=== PATIENT | female | born 1995 | race Caucasian/White ===

== ENCOUNTER → 2020-09-10 12:29 | Outpatient (BNVA) | payer BC, SELFPAY | PROVIDERS: Family Provider Family Medicine; PCP Nurse Practitioner Family; Referring Provider Nurse Practitioner Family; Visit Provider Nurse Practitioner Family | DX: N39.0 Urinary tract infection, site not specified (principal) | CPT/HCPCS: 80053; 81003 ==

== ENCOUNTER → 2020-10-22 08:26 | Outpatient (BNVA) | payer BC, SELFPAY | PROVIDERS: Family Provider Family Medicine; PCP Nurse Practitioner Family; Visit Provider Urology | DX: N39.0 Urinary tract infection, site not specified (principal) | CPT/HCPCS: 81003 ==

== ENCOUNTER → 2021-03-10 14:00 | Outpatient (BNVA) | payer OTHER, SELFPAY | PROVIDERS: Family Provider Family Medicine; PCP Nurse Practitioner Family; Visit Provider Obstetrics & Gynecology | DX: Z12.4 Encounter for screening for malignant neoplasm of cervix (principal); O24.919 Unspecified diabetes mellitus in pregnancy, unspecified trimester; N92.6 Irregular menstruation, unspecified; Z11.3 Encounter for screening for infections with a predominantly sexual mode of transmission | CPT/HCPCS: 83036; 83525; 84443; 88175 ==

== ENCOUNTER → 2021-03-25 09:12 | Outpatient (BNVA) | payer OTHER, SELFPAY | PROVIDERS: Family Provider Family Medicine; PCP Nurse Practitioner Family; Visit Provider Obstetrics & Gynecology | DX: N88.8 Other specified noninflammatory disorders of cervix uteri (principal); R10.2 Pelvic and perineal pain | CPT/HCPCS: 76830 ==

== ENCOUNTER 2021-08-01 14:00 | Emergency (ER) | payer OTHER, SELFPAY ==
[2021-08-01] VITALS (7 sets, daily range): BP systolic 126–144; BP diastolic 83–99; PULSE 84–90; RESP 16–22; TEMP 36.7; O2SAT 97–100; BMI 27.4
--- NOTE | 2021-08-01 14:20 | ED_ITS ---
HPI - Head Injury General: Chief complaint: Head Injury Stated complaint: FELL:HIT HEAD ON DESK,THEN ON FLOOR/LOC Time Seen by Provider: 08/01/21 14:20 Source: patient Mode of arrival: ambulatory Limitations: no limitations History of Present Illness: HPI Narrative: 25-year-old female presents to the ER today for headache, dizziness, nausea, and fatigue after falling yesterday at work and hitting her head on the desk and then the floor. Patient reports this happened after she tripped. She reports she did lose consciousness for about 10 seconds before coming to. When she came to she had tenderness of the scalp and a headache but denied any dizziness at that time. She reports throughout the day yesterday she did have dizziness off and on in addition to a headache and nausea. She never did vomit. Patient denies any vision issues including blurry vision or double vision. Patient denies any prior head injuries. She has not take anything for her symptoms at this time. Patient reports the dizziness and headaches worsened today after going to work and working on the computer for an extended period of time. Patient denies ear pain, congestion, runny nose, sore throat, chest pain, shortness of breath, vomiting, diarrhea, constipation, change in bowel or bladder habits. MD Complaint: head injury Onset (ago): day(s) (1) Mechanism of Injury: fall Place: work Loss of Consciousness: yes Location of injury: temporal Severity: moderate Severity scale (1-10): 4 Quality: dull and aching Radiation: none Other Injuries: none Associated symptoms: Reports nausea; Deny amnesia, confusion, neck pain, numbness, syncope, visual changes or vomiting Review of Systems Const: Denies: fever(s), chills or body aches Eyes: Denies: change in vision or blurry vision ENMT: Denies: throat pain, nasal discharge or nasal congestion Card: Denies: chest pain, palpitations or syncope Resp: Denies: dyspnea, productive cough or wheezing GI: Reports: nausea; Denies: abdominal pain, vomiting, diarrhea or constipation Musc: Denies: neck pain or back pain Skin/Breast: Denies: rash Neuro: Reports: headache(s) and dizziness; Denies: numbness in extremities, weakness in extremities, confusion or Slurred speech present [facility] ED PFSH: Medical History Recurrent UTI Family History Mother Hypothyroidism Hyperthyroidism Uterine cancer onset age of 27 Ovarian cyst Father CAD (coronary artery disease) Sarcoidosis Clotting disorder Factor 5 Grandmother Breast cancer maternal Denies family history of Diabetes Hyperlipidemia Chronic kidney disease (CKD) Anesthesia complication Bleeding disorder Hypertension Stroke Social History Smoking and tobacco status: never smoked Alcohol intake: never Marital status: Life Partner Current occupational status: employed History of recent travel: No Physical Exam Const: COMMON NORMALS: no acute distress, average body habitus, patient oriented x3 and healthy appearing EXAM LIMITATIONS: no altered mental status GENERAL APPEARANCE: cooperative and comfortable; not in distress HENMT: COMMON NORMALS: normocephalic, external ears normal and Normal nasal mucous membranes and turbinates present HEAD & SCALP: normocephalic, contusion (R tenriism and just posterior to R ear) and scalp tenderness; no laceration, no occipital foramen tenderness, no palpable skull fracture and no raccoon eyes FACE & SINUS: normal facial exam NOSE: Normal nasal mucous membranes and turbinates present EXTERNAL EAR: Yes external ears normal THROAT: posterior oropharynx normal Eye: COMMON NORMALS: Equal, round and reactive pupils present, EOMs intact bilaterally, conjunctivae normal and normal visual amin by confrontation GENERAL EYE: appearance normal, both eyes and all related structures and normal light reflex VISUAL ACUITY: Yes acuity normal CONJUNCTIVA: Yes conjunctivae normal PUPIL: Yes Equal, round and reactive pupils present DIRECT OPHTHALMOSCOPY: Yes normal light reflex Neck/C-Spine: COMMON NORMALS: full ROM and no lymphadenopathy Resp: COMMON NORMALS: normal respiratory effort, No retractions and clear to auscultation bilaterally EFFORT & INSPECTION: Yes able to speak in complete sentences AUSCULTATION: clear to auscultation bilaterally, no rales, no rhonchi and no wheezes Cardio: COMMON NORMALS: regular rate, regular rhythm and No murmurs present (Cardio) RATE: regular rate RHYTHM: regular rhythm GI: COMMON NORMALS: Normal to inspection, nondistended, normoactive bowel sounds present, Soft to palpation and non-tender PALPATION: Yes Soft to palpation Extremity: COMMON NORMALS: normal to inspection and full ROM Neuro: COMMON NORMALS: patient oriented x3, CN's II-XII intact bilaterally, moves all extremities, no focal motor deficits and gait normal COORDINATION/BALANCE: [id number]-[id number] test normal, [id number]-[id number] test normal, tandem gait normal, No sways with eyes open, does not sway with eyes open and Romberg test negative SPEECH: speech normal GAIT: Yes Normal gait present MOTOR EXAM: 5/5 motor strength present throughout COORDINATION: edeyry-sn-[id number] test normal, zgva-cu-[id number] test normal, tandem gait normal and does not sway with eyes open Psych: COMMON NORMALS: mental status grossly normal, Normal thought process present, cooperative and speech normal SPEECH: Yes normal speech THOUGHT PROCESS: Normal thought process present Skin: COMMON NORMALS: no rashes or lesions noted GENERAL SKIN EXAM: no rashes or lesions noted Course ED course: Patient fell yesterday, hitting head on the desk and floor and losing consciousness for about 10 seconds. Patient is still experiencing some mild dizziness and nausea in addition to headache. Physical exam in the ER is normal. Neuro exam is normal. Based on this I feel it would be unnecessary to perform a CT at this time. Patient has no neuro deficits. Vital Signs: Vital signs: Vital Signs Temperature 98.1 F 08/01/21 14:12 Pulse Rate 84 08/01/21 14:12 Respiratory Rate 17 08/01/21 14:12 Blood Pressure 126/83 08/01/21 14:12 Pulse Oximetry 99 08/01/21 14:12 MDM - Head Injury MDM Narrative: Medical decision making narrative: Patient presented to the ER after falling and hitting head on desk and floor yesterday and losing consciousness for about 10 seconds. Patient has had classic concussion symptoms since including dizziness, headache, and nausea. Exam in the ER is unremarkable other than superficial bruising in small hematoma to the right side of the scalp. Neuro exam is completely normal. Discussed treatment options with patient including whether to CT or not. Patient is in agreement that we will hold on CT at this time given the normal exam. We did discuss close return precautions. Patient should take ibuprofen or Tylenol for pain. Rest is recommended including most importantly brain rest. We discussed that symptoms can last anywhere from 2 days to months. Patient should follow up with her PCP in 1 week. Return to the ER with new or worsening symptoms. Patient verbalized understanding and was in agreement with this treatment plan Critical Care Time Critical Care Time: Critical Care Time: No Discharge Plan Discharge Condition: Stable Prescriptions: No Action amitriptyline 25 mg tablet 25 mg PO .h.s. RF: 0 escitalopram oxalate 20 mg tablet 20 mg PO DAILY RF: 0 metformin [Glucophage] 500 mg tablet 500 mg PO BID Qty: 60 RF: 6 Discharge Orders: Discharge ED (Routine); Ordered 08/01/21 Ordered By: Mily Mcgrath Referrals: Evangelina Hutson FNP [Primary Care Provider] - Discharge Diet: Usual diet Discharge Activity: Limit activity as instructed Patient Instructions: Concussion/Head Injury - Adult Activity Restrictions/Additional Instructions: Continue home medications. As discussed in the ER, the best treatment for concussion is brain rest. This includes limiting screen time and anything that requires fine focus. Tylenol alternating with Motrin for pain including headaches. Rest is recommended. Push fluids. Symptoms can last anywhere from 2 days to months. I would recommend follow-up with primary care in 1 to 2 weeks. Return to the ER with any new or worsening symptoms. Coding Level of Care Code ED Core Drill Operator Helper for Brooks Regan
== END 2021-08-01 14:58 | disposition home or self-care (01) ==
PROVIDERS: Emergency Provider Physician Assistant; PCP Nurse Practitioner Family
DX: R51.9 Headache, unspecified (principal); R11.0 Nausea; Z79.84 Long term (current) use of oral hypoglycemic drugs
CPT/HCPCS: 99283

== ENCOUNTER → 2021-09-21 14:43 | Outpatient (BNVA) | payer OTHER, SELFPAY | PROVIDERS: PCP Nurse Practitioner Family; Visit Provider Nurse Practitioner | DX: J02.9 Acute pharyngitis, unspecified (principal); J01.90 Acute sinusitis, unspecified; B96.89 Other specified bacterial agents as the cause of diseases classified elsewhere | CPT/HCPCS: 87880 ==

== ENCOUNTER 2022-02-25 16:44 | Emergency (ER) | payer OTHER, SELFPAY ==
[2022-02-25 16:50] VITALS: BP 144/85; PULSE 103; RESP 18; TEMP 36.3; O2SAT 98; BMI 27.4
--- NOTE | 2022-02-25 17:00 | ED_ITS ---
HPI - Abdominal Pain General: Chief Complaint: Abdominal Pain Stated Complaint: N/V Time Seen by Provider: 02/25/22 16:58 History of Present Illness: 26-year-old female comes in today with nausea vomiting diarrhea for the last 3 days. Patient reports no vomiting today but has continued nausea and diarrhea. Patient has had no abdominal surgeries. Patient appears nontoxic. Patient appears in no pain. Associated Symptoms: Reports diarrhea, nausea and vomiting; Denies fever(s) Related Data: Date of Last Menstrual Period: 02/04/22 Review of Systems General: Reports: 10 or more systems reviewed and unremarkable except in HPI and below Const: Denies: fever(s) Card: Denies: chest pain Resp: Denies: dyspnea GI: Reports: abdominal pain, nausea, vomiting and diarrhea : Denies: difficulty voiding Skin/Breast: Denies: rash PFSH ED PFSH: Medical History (Updated 02/25/22 @ 18:25 by LETI Saleh) Recurrent UTI Family History Mother Hypothyroidism Hyperthyroidism Uterine cancer onset age of 27 Ovarian cyst Father CAD (coronary artery disease) Sarcoidosis Clotting disorder Factor 5 Grandmother Breast cancer maternal Denies family history of Diabetes Hyperlipidemia Chronic kidney disease (CKD) Anesthesia complication Bleeding disorder Hypertension Stroke Social History Smoking and tobacco status: never smoked Alcohol intake: never Marital status: Life Partner Current occupational status: employed History of recent travel: No Female Reproductive History: Date of last menstrual period: 02/04/22 Physical Exam Const: COMMON NORMALS: alert HENMT: MOUTH: Normal oral and palatal mucosa present THROAT: posterior oropharynx normal Neck/C-Spine: COMMON NORMALS: full ROM Resp: COMMON NORMALS: normal respiratory effort and clear to auscultation bilaterally AUSCULTATION: clear to auscultation bilaterally Cardio: COMMON NORMALS: regular rate and regular rhythm RATE: regular rate RHYTHM: regular rhythm GI: COMMON NORMALS: Soft to palpation AUSCULTATION: Yes normoactive bowel sounds PALPATION: Yes Soft to palpation, Yes Tenderness to palpation present (GI) (Epigastric), No Guarding due to palpation present (GI) and No Rebound tenderness present : COMMON NORMALS: Yes no CVA tenderness BLADDER/KIDNEY EXAM: Yes no CVA tenderness Back/Pelvis: COMMON NORMALS: no CVA tenderness Extremity: COMMON NORMALS: normal to inspection Neuro: SENSORIUM/ORIENTATION: Yes alert Psych: COMMON NORMALS: cooperative Skin: COMMON NORMALS: no rashes or lesions noted GENERAL SKIN EXAM: no rashes or lesions noted Course Vital Signs: Vital signs: Vital Signs Temperature 97.3 F L 02/25/22 16:50 Pulse Rate 103 H 02/25/22 17:19 Respiratory Rate 16 02/25/22 17:19 Blood Pressure 144/85 02/25/22 17:19 Pulse Oximetry 98 02/25/22 17:19 MDM - Abdominal Pain Medical Decision Making 26-year-old female comes in today for complaints of nausea and vomiting diarrhea for 3 days. Patient reports some epigastric discomfort today and poor oral intake. Patient reports nausea but no vomiting today with continued diarrhea. Patient denies any fever. Patient denies any abdominal surgeries. Patient appears mildly unwell but nontoxic. Patient appears in mild pain. Differential diagnosis includes gastroenteritis, gastritis, gallbladder disease, appendicitis. CBC and CMP were normal except for some mild decrease in potassium at 3.4. Liver enzymes were normal. No sign of biliary obstruction. Patient was given 1 L of IV fluids of 4 mg of Zofran with good results for improvement of overall symptoms. We have patient probably has a bout of gastroenteritis and some mild dehydration. We will continue fluids with electrolyte solution. Patient reported understanding of care plan need for follow-up or return to the ER for high fever blood in vomit or stool. Lab Data : 02/25/22 17:18 02/25/22 17:18 Labs/Radiology: Laboratory Results WBC 5.8 10^3/uL (4.0-10.0) 02/25/22 17:18 RBC 4.83 10^6/uL (4.1-5.3) 02/25/22 17:18 Hgb 14.3 g/dL (11.5-15.3) 02/25/22 17:18 Hct 43.8 % (37.0-47.0) 02/25/22 17:18 MCV 90.7 fl (81-99) 02/25/22 17:18 MCH 29.6 pg (28.0-34.0) 02/25/22 17:18 MCHC 32.6 g/dL (30.0-36.0) 02/25/22 17:18 RDW 11.6 % (12.1-15.1) L 02/25/22 17:18 Plt Count 344 10^3/cmm (130-400) 02/25/22 17:18 MPV 9.8 fL (7.4-10.4) 02/25/22 17:18 Neut % (Auto) 56.8 % 02/25/22 17:18 Lymph % (Auto) 30.5 % 02/25/22 17:18 [place] % (Auto) 9.8 % 02/25/22 17:18 Eos % (Auto) 1.9 % 02/25/22 17:18 Baso % (Auto) 0.7 % 02/25/22 17:18 Neut # (Auto) 3.30 10^3/uL (1.8-7.7) 02/25/22 17:18 Lymph # (Auto) 1.8 10^3/uL (0.8-4.8) 02/25/22 17:18 [place] # (Auto) 0.6 10^3/uL (0.2-0.9) 02/25/22 17:18 Eos # (Auto) 0.1 10^3/uL (0.0-0.8) 02/25/22 17:18 Baso # (Auto) 0.0 10^3/uL (0.0-0.1) 02/25/22 17:18 Nucleated RBC % (auto) 0 % 02/25/22 17:18 Nucleated RBCs # 0.0 /100WBC 02/25/22 17:18 Sodium 139 mmol/L (136-145) 02/25/22 17:18 Potassium 3.4 mmol/L (3.5-5.1) L 02/25/22 17:18 Chloride 101 mmol/L (98-107) 02/25/22 17:18 Carbon Dioxide 26 mmol/L (22-29) 02/25/22 17:18 Anion Gap 15.4 (5-19) 02/25/22 17:18 BUN 9 mg/dL (6-20) 02/25/22 17:18 Creatinine 0.6 mg/dL (0.5-0.9) 02/25/22 17:18 GFR Calculation 120.8 mL/min (90-130) 02/25/22 17:18 Glucose 99 mg/dL (65-115) 02/25/22 17:18 Calculated Osmolality 287 mOsm/kg (285-295) 02/25/22 17:18 Calcium 8.8 mg/dL (8.5-10.5) 02/25/22 17:18 Total Bilirubin 0.5 mg/dL (0.15-1.2) 02/25/22 17:18 AST 17 U/L (0-32) 02/25/22 17:18 ALT 13 U/L (0-33) 02/25/22 17:18 Alkaline Phosphatase 55 IU/L (35-105) 02/25/22 17:18 Total Protein 8.2 g/dL (6.6-8.7) 02/25/22 17:18 Albumin 4.8 g/dL (3.5-5.2) 02/25/22 17:18 Globulin 3.4 g/dL (1.3-4.6) 02/25/22 17:18 Lipase 18 U/L (13-60) 02/25/22 17:18 HCG, Qual Negative (Negative) 02/25/22 17:18 Urine Color Dark yellow (Yellow) 02/25/22 17:10 Urine Appearance Cloudy (CLEAR) 02/25/22 17:10 Urine pH 7 (5-7) 02/25/22 17:10 Ur Specific Elkins 1.015 (1.005-1.030) 02/25/22 17:10 Urine Protein 1+ (Negative) H 02/25/22 17:10 Urine Glucose (UA) Norm (Normal) 02/25/22 17:10 Urine Ketones 1+ (Negative) H 02/25/22 17:10 Urine Blood 2+ (Negative) H 02/25/22 17:10 Urine Nitrate Negative (Negative) 02/25/22 17:10 Urine Bilirubin 1+ (Negative) H 02/25/22 17:10 Urine Urobilinogen 8 mg/dL (Negative) H 02/25/22 17:10 Ur Leukocyte Esterase 2+ (Negative) H 02/25/22 17:10 Urine RBC 0-4 /hpf (0-2) H 02/25/22 17:10 Urine WBC 15-25 /hpf (0-5) H 02/25/22 17:10 Ur Squamous Epith Cells Too numerous to cnt /hpf (0-5) H 02/25/22 17:10 Amorphous Sediment Not Reportable 02/25/22 17:10 Urine Bacteria Tntc /hpf (NONE) 02/25/22 17:10 Discharge Plan Discharge Patient Disposition: Home Clinical Impression: Gastroenteritis, Dehydration Condition: Stable Prescriptions: New ondansetron 4 mg tablet,disintegrating 4 mg PO Q8H PRN (Reason: nausea and vomiting) Qty: 8 0RF No Action amitriptyline 25 mg tablet 25 mg PO .h.s. 0RF azithromycin 250 mg tablet See Rx Instructions PO .COMPLEX 5 Days Qty: 6 0RF Rx Instructions: take 500 mg today (day 1), then 250 mg for 4 days (days 2-5) PO escitalopram oxalate 20 mg tablet 20 mg PO DAILY 0RF metformin [Glucophage] 500 mg tablet 500 mg PO BID Qty: 60 6RF Discharge Orders: Discharge ED (Routine); Ordered 02/25/22 Ordered By: Buddy Anderson Referrals: Evangelina Hutson FNP [Primary Care Provider] - Discharge Diet: Advance as tolerated Discharge Activity: Increase activity as tolerated Patient Instructions: Gastroenteritis (ED) Activity Restrictions/Additional Instructions: Home and rest. Drink plenty of fluids. Drink water and electrolyte solutions to help replace fluid loss. Increase diet as tolerated. Follow-up with primary care as needed. Monitor for fever greater than 100.4, or blood in vomit or stool. If you note any of these things return to ER for further evaluation. Coding Level of Care Code ED Diesel Bus Mechanic for Brooks Fwd Exam Comprehensive
[2022-02-25 17:19] VITALS: BP 144/85; PULSE 103; RESP 16; O2SAT 98
[2022-02-25 17:21] LABS: Basophils % 0.7 %; Eosinophils # 0.1 10^3/uL (0.0-0.8); Eosinophils % 1.9 %; Hematocrit 43.8 % (37.0-47.0); Hemoglobin 14.3 g/dL (11.5-15.3); Lymphocytes # 1.8 10^3/uL (0.8-4.8); Lymphocytes % 30.5 %; Mean Corpuscular HGB Conc 32.6 g/dL (30.0-36.0); Mean Corpuscular Hemoglobin 29.6 pg (28.0-34.0); Mean Corpuscular Volume 90.7 fl (81-99); Mean Platelet Volume 9.8 fL (7.4-10.4); Monocytes # 0.6 10^3/uL (0.2-0.9); Monocytes % 9.8 %; Neutrophils % 56.8 %; Nucleated Red Blood Cells % 0 %; Platelet Count 344 10^3/cmm (130-400); Red Blood Count 4.83 10^6/uL (4.1-5.3); Red Cell Distribution Width 11.6 % (12.1-15.1); White Blood Count 5.8 10^3/uL (4.0-10.0)
[2022-02-25] MEDS: sodium chloride 0.9% 1,000 ML 999 ML IV (17:22)
[2022-02-25] MEDS: ondansetron 2 mg/ML SDV 2 mL 4 MG IVP (17:24)
[2022-02-25 17:38] LABS: Albumin Level 4.8 g/dL (3.5-5.2); Alkaline Phosphatase 55 IU/L (35-105); Anion Gap 15.4 (5-19); Aspartate Amino Transferase 17 U/L (0-32); Blood Urea Nitrogen 9 mg/dL (6-20); Calcium 8.8 mg/dL (8.5-10.5); Carbon Dioxide 26 mmol/L (22-29); Chloride 101 mmol/L (98-107); Globulin 3.4 g/dL (1.3-4.6); Glomerular Filtration Rate 120.8 mL/min (90-130); Glucose 99 mg/dL (65-115); Lipase 18 U/L (13-60); Osmolality Calculated 287 mOsm/kg (285-295); Potassium 3.4 mmol/L (3.5-5.1); Sodium 139 mmol/L (136-145); Total Bilirubin 0.5 mg/dL (0.15-1.2); Total Protein 8.2 g/dL (6.6-8.7)
[2022-02-25 17:42] LABS: HCG, Serum Qual Negative (Negative)
[2022-02-25 17:49] LABS: Alanine Aminotransferase 13 U/L (0-33)
[2022-02-25 17:58] LABS: Blood Urine 2+ (Negative); Glucose Urine UA Norm (Normal); Ketones Urine 1+ (Negative); Nitrate Urine Negative (Negative); Protein Urine 1+ (Negative); Specific Gravity, Urine 1.015 (1.005-1.030); Urine Appearance Cloudy (CLEAR); Urine Color Dark Yellow (Yellow); pH Urine 7 (5-7)
[2022-02-25 17:59] LABS: Urobilinogen Urine 8 mg/dL (Negative)
[2022-02-25 18:00] LABS: Add Urine Microscopic? YES; Leukocyte Esterase Urine 2+ (Negative)
[2022-02-25 18:01] LABS: Bilirubin Urine 1+ (Negative)
[2022-02-25 18:05] LABS: RBC Urine 0-4 /hpf (0-2); Squamous Epithelial Cell Urine TOO NUMEROUS TO CNT /hpf (0-5); WBC Urine 15-25 /hpf (0-5)
[2022-02-25 18:06] LABS: Add Urine Culture? No; Bacteria Urine TNTC /hpf
== END 2022-02-25 18:39 | disposition home or self-care (01) ==
PROVIDERS: Emergency Provider Nurse Practitioner Family; PCP Nurse Practitioner Family
DX: K52.9 Noninfective gastroenteritis and colitis, unspecified (principal); E86.0 Dehydration
CPT/HCPCS: 80053; 81001; 83690; 84703; 85025; 96361; 96374; 99283; J2405; J7030

== ENCOUNTER → 2023-02-10 13:53 | Outpatient (BNVA) | payer BC, SELFPAY | PROVIDERS: PCP Nurse Practitioner Family; Referring Provider Nurse Practitioner Family; Visit Provider Specialist | DX: M25.561 Pain in right knee (principal) | CPT/HCPCS: 73560; 73565 ==

== ENCOUNTER 2023-03-08 07:48 | Outpatient (CLI) | payer BC, SELFPAY ==
--- NOTE | 2023-03-08 08:00 | MR_ITS ---
WS: [id number] MRI RIGHT KNEE HISTORY: positive Marianne COMPARISON: Radiograph 02/10/2023 Anterior cruciate ligament: Intact. Posterior cruciate ligament: Intact. Medial collateral ligament: Small amount of fluid within the medial collateral ligament. There is no full-thickness tear. Posterior lateral corner structures: Intact. Medial menisci: Intact. Normal signal, size and shape. Lateral meniscus: Intact. Normal signal, size and shape. Extensor mechanism: Distal quadriceps tendon and patellar tendons are intact. Fluid and soft tissue: No joint effusion. No Diggs's cyst. Osseous and articular structures: Patellofemoral compartment: Normal. Medial compartment: Normal. Lateral compartment: Normal. MR/MR knee RT wo con* [id number] IMPRESSION: 1. Normal ACL. 2. Very small amount of intrasubstance edema within the medial collateral liga ment. Mild sprain suspected. 3. No joint effusion or marrow edema. 4. No meniscal tear.
== END 2023-03-08 07:49 | disposition home or self-care (01) ==
LOC: RAD 07:50
PROVIDERS: PCP Nurse Practitioner Family; Visit Provider Specialist
DX: M25.561 Pain in right knee (principal)
CPT/HCPCS: 73721

== ENCOUNTER 2023-03-24 14:36 | Outpatient (CLI) | payer BC, SELFPAY | END 2023-03-24 14:37 | disposition home or self-care (01) | LOC: SPT 14:36 | PROVIDERS: PCP Nurse Practitioner Family; Visit Provider Specialist | DX: Z46.89 Encounter for fitting and adjustment of other specified devices (principal); M25.561 Pain in right knee | CPT/HCPCS: 97760; L1812 ==

== ENCOUNTER 2025-08-07 14:50 | Outpatient (CLI) | payer OTHER, SELFPAY ==
--- NOTE | 2025-08-07 14:55 | XR_ITS ---
WS: [id number] Exam: XR ankle RT min 3V* [id number] Date/Time of Exam: 08/07/2025 2:55 PM Reason For Exam: HURT RT ANKLE No fracture. The ankle mortise is equidistant. Normal soft tissues. XR/XR ankle RT min 3V* [id number] IMPRESSION: 1. Negative RIGHT ankle.
== END 2025-08-07 14:51 | disposition home or self-care (01) ==
PROVIDERS: PCP Nurse Practitioner Family; Visit Provider Podiatrist Foot & Ankle Surgery
DX: S99.911A Unspecified injury of right ankle, initial encounter (principal)
CPT/HCPCS: 73610